=== PATIENT | female | born 1960 | race Caucasian/White ===

== ENCOUNTER 2016-08-04 03:10 | Emergency (ER) | payer OTHER ==
[2016-08-04 03:30] VITALS: RESP 18; TEMP 97.9
[2016-08-04 04:32] VITALS: BP 133/67; PULSE 79; O2SAT 98
== END 2016-08-04 03:55 | disposition home or self-care (01) ==
LOC: ED 03:10
DX: F10.129 Alcohol abuse with intoxication, unspecified (principal)
CPT/HCPCS: 99282